=== PATIENT | male | born 1970 | race Caucasian/White ===

== ENCOUNTER 2021-01-21 08:05 | Outpatient (CLI) | payer BC, SELFPAY ==
--- NOTE | ~2021-01-21 | XR_ITS ---
EXAMINATION: XR shoulder RT min 2V EXAM DATE: 01/21/2021 08:47 INDICATION: Pain right ant and lat prox humerus x 1.5yrs, decreased ROM. TECHNIQUE: The following right shoulder projections obtained: frontal projection with internal rotati on, frontal projection with external rotation, Grashey, and axillary (4+ views). There is no prior s tudy for comparison. FINDINGS: No evidence of right shoulder rotator cuff calcific tendinosis. There is mild glenohumer al joint, moderate acromioclavicular joint primary osteoarthritis. There are no acute fractures or di slocations identified. There is no subcutaneous gas. The soft tissue is unremarkable. There are n o radiopaque foreign bodies. IMPRESSION: Mild to moderate right shoulder osteoarthritis. Reviewed, dictated and finalized at location B.
[2021-01-21 08:22] LABS: Basophils Absolute Auto 0.07 K/mm3 (0.00-0.10); Basophils Percent Auto 1.1 % (0.0-1.0); Eosinophils Absolute Auto 0.13 K/mm3 (0.02-0.50); Eosinophils Percent Auto 2.1 % (1.0-6.0); Hematocrit 45.7 % (40.0-54.0); Hemoglobin 16.1 g/dL (14.0-18.0); Immature Granulocyte Absolute 0.02 K/mm3 (0.00-0.00); Immature Granulocyte Percent A 0.3 % (0.0-0.0); Lymphocytes Absolute Auto 2.73 K/mm3 (1.10-4.50); Lymphocytes Percent Auto 43.7 % (18.0-42.0); Mean Corpuscular HGB Conc 35.2 g/dL (32.0-36.0); Mean Corpuscular Hemoglobin 31.2 pg (27.0-31.0); Mean Corpuscular Volume 88.6 fL (78.0-102.0); Mean Platelet Volume 8.7 fl (8.7-11.0); Monocytes Absolute Auto 0.55 K/mm3 (0.10-0.90); Monocytes Percent Auto 8.8 % (2.0-11.0); Neutrophils Absolute Auto 2.8 K/mm3 (1.7-7.2); Platelet Count Result 383 K/mm3 (150-420); Red Blood Count 5.16 M/mm3 (4.70-6.10); Red Cell Distribution Width 11.9 % (11.6-14.4); White Blood Count 6.3 K/mm3 (4.8-10.8)
[2021-01-21 08:32] LABS: Hemoglobin A1C 8.6 % (<5.7)
[2021-01-21 09:20] LABS: Alanine Aminotransferase 36 U/L (16-63); Albumin Level 4.3 g/dL (3.4-5.0); Alkaline Phosphatase 85 U/L (46-116); Anion Gap 12 mmol/L (8-16); Aspartate Amino Transferase 13 U/L (15-37); Bilirubin,Total 0.5 mg/dL (0.00-1.00); Blood Urea Nitrogen 24 mg/dL (7-18); Calcium 9.2 mg/dL (8.5-10.1); Carbon Dioxide 28 mmol/L (21-32); Chloride 96 mmol/L (98-108); Cholesterol 307 mg/dL (0-200); Estimated Glomerular Filt Rate > 60; Glucose 190 mg/dL (70-99); HDL Direct 44 mg/dL (40-60); LDL Cholesterol Calculated 188 mg/dL (<130); Osmolality Calculated 291 mOsm/kg (285-295); Potassium 4.3 mmol/L (3.5-5.1); Sodium 136 mmol/L (136-145); Total Protein 7.5 g/dL (6.4-8.2); Triglycerides 375 mg/dL (0-150)
== END 2021-01-21 08:06 | disposition home or self-care (01) ==
LOC: CHSLAB 08:09
PROVIDERS: PCP Nurse Practitioner Family; Visit Provider Nurse Practitioner Family
DX: E11.9 Type 2 diabetes mellitus without complications (principal); M25.511 Pain in right shoulder
CPT/HCPCS: 36415; 73030; 80053; 80061; 83036; 85025

== ENCOUNTER 2021-01-26 09:55 | Outpatient (RCR) | payer BC, SELFPAY ==
--- NOTE | 2021-01-26 12:55 | PTOPEVAL ---
Thank you for referring Miguel Angel Kline to [facility].? The patient is scheduled to be seen for therapy? ____x/week for ___ weeks. Please review, sign, date and return this plan of care THANG. I agree with and certify that the following plan of care is medically necessary. Referring Physician Date Admitting Provider: Attending Provider: Queenie Fields NP Referring Provider: *[facility] Outpatient Evaluation Start: 01/26/21 09:56 Freq: Status: Active Protocol: Document 01/26/21 09:56 ACR (Rec: 01/26/21 10:58 [id number]) Therapy Assessment Status Assessment Status Assessment Status Evaluation Evaluation Information Problem Diagnosis R shoulder pain Onset 01/22/21 Subjective Information Patient reports that he has Query Text:As Reported By Patient/ been having shoulder pain Family quite a bit. He states a year and a half ago he was putting floor in and his shoulder felt really weak. He gave it some time, but the shoulder never got better. Patient states that his shoulder feels incredibly weak. He is unable to perform his daily activities and hobbies because of his shoulder. He also has difficulty with lifting and carrying objects. 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 Patient states that his goal for therapy is to improve his range of motion. Prior Level of Function Activity Level (Last 3 Months) Occupation chefs Hand Dominance Right Activity of Daily Living Ability Independent Indoor/Home Mobility Independent Community Mobility Independent Stairs Ability Independent Functional Cognition (Planning, Shopping Independent , Taking Medications) Cooking Yes Cleaning Yes Laundry Yes Shopping Yes Driving Yes Pain Assessment Timing of Pain Assessment Timing of Pain Assessment Assessment Pain Scale Pain Scale Used Numeric (1 - 10) Self Report Pain Assessment Right Shoulder(s) Reported Pain Level 2 Greatest Pain Intensity 7 Pain Score Pain Score
--- NOTE | 2021-02-21 12:42 | PTOPEVAL ---
Thank you for referring Miguel Angel Kline to [facility].? The patient is scheduled to be seen for therapy? ____x/week for ___ weeks. Please review, sign, date and return this plan of care THANG. I agree with and certify that the following plan of care is medically necessary. Referring Physician Date Admitting Provider: Attending Provider: Queenie Fields NP Referring Provider: OR[facility] Outpatient Evaluation Start: 01/26/21 09:56 Freq: Status: Active Protocol: Document 02/16/21 09:00 RUST (Rec: 02/21/21 12:42 [email or web address]) Therapy Assessment Status Assessment Status Assessment Status Re-evaluation Evaluation Information Problem Diagnosis R shoulder pain Onset 01/22/21 Subjective Information patient reports he feels Query Text:As Reported By Patient/ better, but continues tohave Family pain in the R shoulder. he reports this limits his lifting and reaching ability ( especially behind his back). he reports he is not back to his full functional ability and limits his R arm use due to his pain and decreased mobility. Pain Assessment Timing of Pain Assessment Timing of Pain Assessment Assessment Pain Scale Pain Scale Used Numeric (1 - 10) Self Report Pain Assessment Right Shoulder(s) Reported Pain Level 2 Greatest Pain Intensity 6 Pain Score Pain Score 2: Self Report Interventions Used Interventions Used By Clinicians Activity or ADL's,Electrical Stimulation,Exercise,Heat, Mobilization,Manual Therapy Techniques Upper Extremity Range of Motion Scapular/ Shoulder Range of Motion Right Shoulder Flexion - Active 155 Shoulder Medial Rotation - Active 60 Shoulder Medial Rotation - Active functional reach to the mid Query Text:Reach Behind the Back lumbar spine midline Shoulder Lateral Rotation - Active 80 Shoulder Lateral Rotation - Active functional reach to T3 midline Query Text:Reach Behind the Head Upper Extremity Muscle Strength Testing Scapular/Shoulder Right Shoulder Flexion Strength 4 Good Shoulder Abduction Strength 4+ Good + Shoulder Medial Rotation Strength 5 Normal Shoulder Lateral Rotation Strength 4 Good Left Shoulder Flexion Strength 5 Normal Shoulder Abduction Strength 5 Normal Shoulder Medial Rotation Strength 5 Normal Shoulder Lateral Rotation Strength 5 Normal Palpation Assessment Palpation Palpation Patient is TTP to the
== END 2021-03-04 08:43 | disposition home or self-care (01) ==
LOC: CHSPT 09:55
PROVIDERS: PCP Nurse Practitioner Family; Visit Provider Nurse Practitioner Family
DX: M25.511 Pain in right shoulder (principal)
CPT/HCPCS: 97014; 97110; 97140; 97161; G0283